=== PATIENT | male | born 1965 ===

== ENCOUNTER 2021-08-29 09:36 | Emergency (ER) | payer SELFPAY ==
[~2021-08-29] VITALS: Ht 172.7 cm; Wt 69.3 kg
[2021-08-29 10:08] VITALS: BP 165/81
== END 2021-08-29 10:48 | disposition home or self-care (01) ==
LOC: ER 09:37
DX: F10.129 Alcohol abuse with intoxication, unspecified (principal); Y90.9 Presence of alcohol in blood, level not specified; F12.10 Cannabis abuse, uncomplicated
CPT/HCPCS: 99281